=== PATIENT | male | born 1990 | race Caucasian/White ===

== ENCOUNTER 2025-04-22 09:54 | Emergency (ER) | payer MEDICAID, OTHER ==
[~2025-04-22] VITALS: Ht 180.3 cm; Wt 77.3 kg
[2025-04-22 10:07] VITALS: TEMP 98.1
[2025-04-22 10:15] VITALS: BP 118/91; PULSE 72; RESP 18; O2SAT 98
== END 2025-04-22 12:03 | disposition left against medical advice (07) ==
LOC: EMS 09:54
DX: R52 Pain, unspecified (principal); Z53.21 Procedure and treatment not carried out due to patient leaving prior to being seen by health care provider
CPT/HCPCS: 99281; Z7502